=== PATIENT | female | born 1995 | race Caucasian/White ===

== ENCOUNTER 2023-10-27 10:31 | Emergency (ER) | payer OTHER, SELFPAY ==
[2023-10-27 10:41] VITALS: BP 134/101
[2023-10-27 11:16] VITALS: BP 138/84
[2023-10-27 11:18] VITALS: BMI 36.3
[2023-10-27 11:35] VITALS: BP 130/84
--- NOTE | 2023-10-27 12:07 | ED.GENMED ---
History of Present Illness
General
Chief Complaint: Cold/Flu/URI Symptoms
Source: patient and spouse
Exam Limitations: none
Time Seen by Provider: 10/27/23 11:21
Nursing documentation reviewed up to this point in time: agreed with
Travel History
Have you had any contact with someone who has COVID-19?: No
Do you have any symptoms of coronavirus? Fever > 100 degrees, chills, cough, shortness of breath, sore throat, loss of taste or smell, muscle aches, or headache?: No
History of Present Illness
History of Present Illness:
28-year-old female limited past medical history presents with fatigue body aches sore throat sinus congestion cough diagnosed with a sinus infection in urgent care unable to keep her antibiotics down no documented fevers no sick contacts she is
menstruating now, her throat is sore, general malaise
Past History
Past History
ED Past Medical History: Psychiatric
ED Past Surgical History: None
Social History
Tobacco: Non-smoker
Alcohol: None
Drug: None
Personal:
Living: with family
Employment: Employed
Review of Systems
Review of Systems
All Other Systems: Not applicable
Constitutional: Reports fatigue; Denies fever or chills
Respiratory: Reports cough
Cardiac: Reports no symptoms
ABD/GI: Reports nausea and vomiting; Denies abdominal pain or diarrhea
: Reports no symptoms
Musculoskeletal: Reports muscle stiffness
Skin: Reports no symptoms
Neurological: Reports weakness
Endocrine: Reports no symptoms
Phy Exam
Physical Exam
Physical Exam:
Physical Exam
General: 28 female coughing
Neck: Red throat no exudates no trismus +dry lips
Heart: s1/s2 regular rate and rhythm, no murmur. equal radial pulses.
Lungs: no acute respiratory distress. Faint rhonchi
Abdomen: Not tender
Neuro: alert and oriented. no focal neurological deficits
Skin: no rash
Psychiatric: well kept. interactive and cooperative
Extremities: no edema. no calf tendernes
Course
Orders/Labs/Results
Orders:
Orders
10/27/23 11:52
0.9% Sodium Chloride 1000 ml [Nss] 1,000 ml IV BOLUS
Dexamethasone Sod Phosphate [Decadron] 10 mg IV NOW STA
Ipratropium/Albuterol Sulfate [Duoneb] 3 ml INH R NOW STA
10/27/23 11:53
CR Chest - 2 Views Urgent
Comment:
Reason For Exam: cough
10/27/23 11:54
Test Result ONCE
10/27/23 11:55
Ondansetron Injectable [Zofran] 4 mg IV NOW STA
10/27/23 12:09
Add On- LAB Urgent
Tests Added?: cpk
10/27/23 12:10
Complete Blood Count/With Diff Urgent
Comprehensive Metabolic Panel Urgent
Creatine Phosphokinase Urgent
Comment: ADD ON
HCG, Serum Qualitative Screen Urgent
Influenza A+B Rapid Molecular Urgent
FADI Source: Nasal Swab
Specimen Description:
Abnormal Lab Results
10/27/23
12:10
WBC 3.6 L 10^3/uL
(4.8-10.8)
RBC 5.44 H 10^6/uL
(4.20-5.40)
MCV 70.2 L fL
(81.0-99.0)
MCH 22.4 L pg
(27.0-31.0)
MCHC 31.9 L g/dL
(33.0-37.0)
RDW 18.1 H %
(11.5-14.5)
Absolute Lymphs (auto) 1.1 L 10^3/uL
(1.2-3.4)
Monocytes % 12.4 H %
(1.7-9.3)
Glucose 116 H mg/dl
(70-99)
AST 61 H U/L
(14-36)
ALT 41 H U/L
(0-35)
Creatine Kinase 140 H U/L
(30-135)
10/27/23 12:10
10/27/23 12:10
Vital Signs
Initial and Last Documented VS:
Initial Vital Signs
Temp Pulse Resp BP Pulse Ox
98.4 F 131 20 134/101 98
10/27/23 10:41 10/27/23 10:41 10/27/23 10:41 10/27/23 10:41 10/27/23 10:41
Last Documented Vital Signs
Temp Pulse Resp BP Pulse Ox
98.4 F 110 21 124/67 95
10/27/23 10:41 10/27/23 11:35 10/27/23 11:35 10/27/23 13:00 10/27/23 13:15
MDM/Problems Addressed
Differential Diagnosis Includes:
Sinusitis pneumonia viral syndrome pharyngitis influenza low clinical suspicion for serious bacterial infection and/or ENGLISH [employer]
MDM/Problems Addressed:
Vomiting sinus congestion body
*Radiology
Radiology exam reviewed: radiology read reviewed
*Pulse Oximetry
Patient hypoxic: no
*Forms Analysis Manager Interpretation
Rate: normal
Interpretation: normal
Heart Rate: 88
Rhythm: sinus
*Critical Care Note
Total Time (30-74mins, 75-104mins- exclusive of procedures): Not Applicable
Update Note
Update Note:
Update
Labs noted chest x-ray noted we will try nebs and steroids
Influenza B positive
Chest x-ray report noted will have her continue antibiotics although this is all likely viral
ED Attending Note
-
Portions of this chart may have been created with voice recognition software.� Occasional wrong word or��sound alike� substitutions may have occurred due to the inherent limitations of voice recognition software.
Discharge Plan
Departure
Patient Disposition: Home (Routine Discharge)
Date of Disposition: 10/27/23
Time of Disposition: 13:43
Patient with high blood pressure during this ER visit?: No
Condition: Good
Covid-19: Not Applicable
Discharge Problem:
Acute bronchitis, Influenza
Instructions: Acute Bronchitis, Adult (DC), Flu, Adult ED
Prescriptions:
New
albuterol sulfate [Ventolin HFA] 90 mcg/actuation HFA aerosol inhaler
2 puff inhalation Q6H PRN (Reason: shortness of breath or wheezing) Qty: 8.5 1RF
prednisone 50 mg tablet
50 mg PO DAILY Qty: 5 0RF
ondansetron 4 mg tablet,disintegrating
4 mg PO Q8H Qty: 10 0RF
No Action
norethindrone-e.estradiol-iron [Junel FE .11/29 ()] 1 EACH tablet
1 tab PO HS
dextroamphetamine-amphetamine [Adderall XR] 30 MG capsule,extended release 24hr
30 mg PO DAILY
Patient Comments:
04/19/2021: last filled 04/16/21, 30 tabs for 30 days from [facility]#[id number]
fluoxetine 20 MG capsule
20 mg PO DAILY
bupropion HCl 150 MG tablet extended release 24 hr
150 mg PO DAILY
levofloxacin 750 MG tablet
750 mg PO DAILY 5 Days Qty: 5 0RF
ketorolac 10 MG tablet
10 mg PO Q6HPRN PRN (Reason: pain) 2 Days Qty: 8 0RF
Referrals:
Clara Hull PA-C [Family Provider] -
Interventions
Interventions:
*Risk Screen - Suicide Last Done: 10/27/23 11:18
*Neglect/Abuse Screening Last Done: 10/27/23 11:18
ED- Fall Risk Assessment Last Done: 10/27/23 11:18
*ED COVID-19 Vaccine History Last Done: 10/27/23 10:41
ED- Pulmonary Assessment Last Done: 10/27/23 11:18
Discharge Date and Time
Print Language: WALLISIAN
[2023-10-27] MEDS: DUONEB 3 ML INH (12:12)
[2023-10-27] MEDS: DECADRON 10 MG IV (12:12)
[2023-10-27] MEDS: ZOFRAN 4 MG IV (12:12)
[2023-10-27] MEDS: NSS 1000 IV (12:12)
[2023-10-27 12:21] LABS: % Basophils 0.3 % (0-2); % Eosinophils 0.6 % (0-6); % Immature Granulocytes 0.3 % (0-0.5); % Lymphocytes 28.9 % (20.5-51.1); % Monocytes 12.4 % (1.7-9.3); % Neutrophils 57.5 % (42.2-75.2); Absolute Lymphocytes 1.1 10^3/uL (1.2-3.4); Absolute Monocytes 0.5 10^3/uL (0.1-0.6); Absolute Neutrophils 2.1 10^3/uL (1.4-6.5); Hematocrit 38.2 % (37.0-47.0); Hemoglobin 12.2 g/dL (12.0-16.0); Mean Corp Hgb Conc. 31.9 g/dL (33.0-37.0); Mean Corpuscular Hgb 22.4 pg (27.0-31.0); Mean Corpuscular Volume 70.2 fL (81.0-99.0); Mean Platelet Volume 8.6 fL (7.4-10.4); Nucleated Red Blood Cells % 0 %; Platelet Count 398 10^3/uL (130-400); Red Blood Cell Count 5.44 10^6/uL (4.20-5.40); Red Cell Dist. Width 18.1 % (11.5-14.5); White Blood Cell Count 3.6 10^3/uL (4.8-10.8)
[2023-10-27 12:32] LABS: HCG, Serum Qualitative Screen Negative
[2023-10-27 12:35] LABS: ALT (SGPT) 41 U/L (0-35); AST (SGOT) 61 U/L (14-36); Albumin 4.1 g/dl (3.5-5.0); Alkaline Phosphatase 125 U/L (38-126); Blood Urea Nitrogen 10 mg/dl (7-17); Carbon Dioxide 25 mmol/L (22-30); Chloride 103 mmol/L (98-107); Creatine Phosphokinase 140 U/L (30-135); Estimated Creatinine Clearance > 125 ml/min; Glucose 116 mg/dl (70-99); Potassium 4.2 mmol/L (3.5-5.1); Sodium 135 mmol/L (135-145); Total Bilirubin 0.3 mg/dl (0.2-1.3); Total Protein 7.7 g/dl (6.3-8.2); eGFR > 60.00
[2023-10-27 12:44] VITALS: BP 127/73
[2023-10-27 13:00] VITALS: BP 124/67
== END 2023-10-27 14:05 | disposition home or self-care (01) ==
LOC: EMR 10:31
PROVIDERS: EMERGENCY PHYSICIAN Emergency Medicine; FAMILY PHYSICIAN Physician Assistant Medical
DX: J20.9 Acute bronchitis, unspecified (principal); J10.1 Influenza due to other identified influenza virus with other respiratory manifestations; R11.2 Nausea with vomiting, unspecified; J45.909 Unspecified asthma, uncomplicated; K58.9 Irritable bowel syndrome, unspecified; F41.9 Anxiety disorder, unspecified; F32.A Depression, unspecified; F43.10 Post-traumatic stress disorder, unspecified
CPT/HCPCS: 99284; 96374; 96375; 96361; 94640; 71046; 80053; 82550; 84703; 85025; 87502